=== PATIENT | female | born 1970 | race Caucasian/White ===

== ENCOUNTER 2016-11-28 20:10 | Emergency (ER) | payer BC, MEDICAID ==
--- NOTE | 2016-11-28 20:18 | EDM.PDOC ---
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 Past medical history: As per history of present illness and as reviewed below otherwise noncontributory. Surgical history: As per history of present illness and as reviewed below otherwise noncontributory. Social history: No reported history of drug or alcohol abuse. Family history: As per history of present illness and as reviewed below otherwise noncontributory. Physical exam:alert oriented female, obese. HEENT: Atraumatic, normocehpalic, pupils reactive, negative for conjunctival pallor or scleral icterus, mucous membranes moist, throat clear, neck supple, nontender, trachea midline. Lungs: Clear to auscultation, breath sounds equal bilaterally, chest non tender. Heart: S1S2, regular, negative for clicks, rubs, or JVD. Abdomen: Soft, nondistended, nontender. Negative for masses or hepatossplenmegaly. Negative for costovertebral tenderness. Pelvis: Stable nontender. Genitourinary: Deferred. Rectal: Deferred Extremities: Atraumatic, negative for cords or calf pain. pain with light compression of the calf. Neurovascular unremarkable. Neuro: Awake, alert, oriented. Cranial nerves II through XII unremarkable. Cerebellum unremarkable. Motor and sensory unremarkable throughout. Exam nonfocal. Diagnostics: [doppler negative for DVT] Therapeutics: [toradal] Impression: [rt leg pain] Plan: [follow up with [facility] [address] [place] [id number] ] Definitive disposition and diagnosis as appropriate pending reevaluation and review of above. Occurred When: other (painful X 1 month but worsening for the last week) Method of Injury: unknown Severity: severe Pain/Injury Location: Reports: none Consciousness: Reports: no loss of consciousness Associated Symptoms: Reports: no other symptoms Allergies/ADRs: Allergies No Known Allergies Allergy (Verified 11/28/16 20:12) Home Medications: Ambulatory Orders Aspirin 1 tab PO DAILY 11/28/16 [Confirmed 11/28/16] Calcium Carb & Citrate/Vit D3 [Calcium + D3 ER Tablet] 1 tab PO DAILY 11/28/16 [ Confirmed 11/28/16] Cholecalciferol (Vitamin D3) [Vitamin D3] 1 cap PO DAILY 11/28/16 [Confirmed 09/04] Cyanocobalamin (Vitamin B-12) [Vitamin B12] 1 tab PO DAILY 11/28/16 [Confirmed 11/28/16] DULoxetine [Cymbalta] 1 cap PO DAILY 11/28/16 [Confirmed 11/28/16] FA/Lycopene/Lut/MV,Ca,Iron,Min [Centrum] 1 tab PO DAILY 11/28/16 [Confirmed 09/04] Ferrous Sulfate [Iron] 1 tab PO DAILY 11/28/16 [Confirmed 11/28/16] Gabapentin [Gralise] 1 tab PO TID 11/28/16 [Confirmed 11/28/16] Levothyroxine 1 tab PO DAILY 11/28/16 [Confirmed 11/28/16] Lisinopril 1 tab PO DAILY 11/28/16 [Confirmed 11/28/16] Omeprazole 1 cap PO DAILY 11/28/16 [Confirmed 11/28/16] Review of Systems - Review of Systems Review Of Systems: ROS reveals no pertinent complaints other than HPI. Trauma Exam - Physical Exam Exam: See Below (see dictation) Course - Vital Signs Last Recorded V/S: Last Vital Signs Temp 36.8 C 11/28/16 20:13 Pulse 88 11/28/16 20:13 Resp 16 11/28/16 20:13 BP 186/86 H 11/28/16 20:13 Pulse Ox 99 11/28/16 20:13 - Orders/Labs/Meds Orders: Active Orders 24 hr Category Date Time Status Venous Doppler Lwr Ext Rt [US] Stat Exams 11/28/16 20:19 Ordered Ketorolac [Toradol] Med 11/28/16 21:52 Once 60 mg IM ONETIME ONE Sodium Chloride 0.9% [Saline Flush] Med 11/28/16 20:41 Active 10 ml FLUSH ASDIRECTED PRN Sodium Chloride 0.9% [Saline Flush] Med 11/28/16 20:41 Active 2.5 ml FLUSH ASDIRECTED PRN Saline Lock Insert [OM.PC] Stat Oth 11/28/16 20:41 Ordered Medication Orders Sodium Chloride (Saline Flush) 10 ml FLUSH ASDIRECTED PRN PRN Reason: Keep Vein Open Sodium Chloride (Saline Flush) 2.5 ml FLUSH ASDIRECTED PRN PRN Reason: Keep Vein Open Labs: Laboratory Tests 11/28/16 11/28/16 11/28/16 Range/Units 20:45 20:45 20:45 WBC 6.23 (4.0-11.0) K/uL RBC 5.64 (4.30-5.90) M/uL Hgb 12.8 (12.0-16.0) g/dL Hct 41.8 (36.0-46.0) % MCV 74.1 L (80.0-98.0) fL MCH 22.7 L (27.0-32.0) pg MCHC 30.6 L (31.0-37.0) g/dL RDW Std Deviation 48.1 (28.0-62.0) fl RDW Coeff of Tila 18 H (11.0-15.0) % Plt Count 212 (150-400) K/uL MPV 10.00 (7.40-12.00) fL Neut % (Auto) 56.3 (48.0-80.0) % Lymph % (Auto) 27.0 (16.0-40.0) % Caroline % (Auto) 13.8 (0.0-15.0) % Eos % (Auto) 2.4 (0.0-7.0) % Baso % (Auto) 0.5 (0.0-1.5) % Neut # 3.5 (1.4-5.7) K/uL Lymph # 1.7 (0.6-2.4) K/uL Caroline # 0.9 H (0.0-0.8) K/uL Eos # 0.2 (0.0-0.7) K/uL Baso # 0.0 (0.0-0.1) K/uL Nucleated RBC % 0.0 /100WBC Nucleated RBCs # 0 K/uL INR 0.98 (0.86-1.11) Sodium 140 (136-146) mmol/L Potassium 4.0 (3.5-5.1) mmol/L Chloride 106 (98-110) mmol/L Carbon Dioxide 26 (21-31) mmol/L BUN 15 (6.0-23.0) mg/dL Creatinine 0.8 (0.6-1.5) mg/dL Est Cr Clr Drug Dosing 79.91 mL/min Estimated GFR (MDRD) > 60.0 ml/min Glucose 117 H (60-110) mg/dL Calcium 8.9 (8.8-10.8) mg/dL Total Bilirubin 0.3 (0.1-1.5) mg/dL AST 11 (5-40) IU/L ALT 11 (8-54) IU/L Alkaline Phosphatase 60 (40-150) Total Protein 6.4 (6.0-8.0) g/dL Albumin 3.7 (3.5-5.0) g/dL Globulin 2.7 (2.0-3.5) g/dL Albumin/Globulin Ratio 1.4 (1.3-2.8) Meds: Medications Generic Name Dose Route Start Last Admin Trade Name Freq PRN Reason Stop Dose Admin Sodium Chloride 10 ml 11/28/16 20:41 Saline Flush FLUSH ASDIRECTED PRN Keep Vein Open Sodium Chloride 2.5 ml 11/28/16 20:41 Saline Flush FLUSH ASDIRECTED PRN Keep Vein Open Departure - Departure Time of Disposition: 21:54 Disposition: Home, Self-Care 01 Condition: good Clinical Impression: Leg pain Qualifiers: Laterality: right Qualified Code(s): M79.604 - Pain in right leg Referrals: PCP,None [Primary Care Provider] - Jana Recio, [employer] [Nurse Practitioner] - Forms: ED Department Discharge Additional Instructions: The following information is given to patients seen in the emergency department who are being discharged to home. This information is to outline your options for follow-up care. We provide all patients seen in our emergency department with a follow-up referral. The need for follow-up, as well as the timing and circumstances, are variable depending upon the specifics of your emergency department visit. If you don't have a primary care physician on staff, we will provide you with a referral. We always advise you to contact your personal physician following an emergency department visit to inform them of the circumstance of the visit and for follow-up with them and/or the need for any referrals to a consulting specialist. The emergency department will also refer you to a specialist when appropriate. This referral assures that you have the opportunity for followup care with a specialist. All of these measure are taken in an effort to provide you with optimal care, which includes your followup. Under all circumstances we always encourage you to contact your private physician who remains a resource for coordinating your care. When calling for followup care, please make the office aware that this follow-up is from your recent emergency room visit. If for any reason you are refused follow-up, please contact the [facility] emergency department at and asked to speak to the emergency department charge nurse. - My Orders Last 24 Hours: My Active Orders 11/28/16 20:19 Venous Doppler Lwr Ext Rt [US] Stat 11/28/16 20:41 Sodium Chloride 0.9% [Saline Flush] 10 ml FLUSH ASDIRECTED PRN Sodium Chloride 0.9% [Saline Flush] 2.5 ml FLUSH ASDIRECTED PRN Saline Lock Insert [OM.PC] Stat 11/28/16 21:52 Ketorolac [Toradol] 60 mg IM ONETIME ONE - Assessment/Plan Last 24 Hours: My Active Orders 11/28/16 20:19 Venous Doppler Lwr Ext Rt [US] Stat 11/28/16 20:41 Sodium Chloride 0.9% [Saline Flush] 10 ml FLUSH ASDIRECTED PRN Sodium Chloride 0.9% [Saline Flush] 2.5 ml FLUSH ASDIRECTED PRN Saline Lock Insert [OM.PC] Stat 11/28/16 21:52 Ketorolac [Toradol] 60 mg IM ONETIME ONE
[2016-11-28] MEDS ORDERED: Sodium Chloride 0.9% 2.5 ML Syringe FLUSH PRN (20:41)
[2016-11-28] MEDS ORDERED: Sodium Chloride 0.9% 10 ML Syringe FLUSH PRN (20:41)
[2016-11-28 21:18] LABS: CHLORIDE,CL 106 mmol/L (98-110); SODIUM,NA 140 mmol/L (136-146)
[2016-11-28] MEDS ORDERED: Ketorolac 60 MG/2 ML SDV IM ONE (21:52)
[2016-11-28] MEDS ORDERED: Ketorolac 30 MG/ML SDV IVPUSH ONE (22:00)
[2016-11-28 22:37] VITALS: BP 125/67
--- NOTE | 2016-11-30 10:40 | US ---
EXAM DATE: 11/28/16 PATIENT'S AGE: 46 Patient: GUANAKITO GOYAL Facility: [place], [place] Site . Site : 1970 Study: US Extremity [id number]/12/2017 9:54:54 PM Ordering Physician: Doctor Owen Final Report: INDICATION: Leg pain TECHNIQUE: right lower extremity venous duplex ultrasound was performed using gomez-scale ultrasound with and without compression and augmentation. Color Doppler and spectral Doppler exam of the lower extremity veins were obtained. COMPARISON: None FINDINGS: The right common femoral, deep femoral, superficial femoral, popliteal, posterior tibial, and greater saphenous veins are fully compressible with normal Duplex waveforms and response to mechanical augmentation. No masses or fluid collections are present. No mass or adenopathy is seen. IMPRESSION: 1. No sonographic evidence of deep venous thrombosis seen. Dictated by: Black Armstrong MD @ 11/28/2016 22:03:20 (Electronic Signature) Report Signed by Proxy and Original Signed Document filed in the Medical Record. MTDD
== END 2016-11-28 22:32 | disposition home or self-care (01) ==
LOC: MW.ED 20:10
DX: M79.604 Pain in right leg (principal)
CPT/HCPCS: 80053; 85025; 85610; 93971; 96374; 99284; J1885

== ENCOUNTER → 2016-12-01 | Outpatient (CLI) | payer BC, MEDICAID ==
--- NOTE | 2016-12-01 15:54 | CR ---
EXAMINATION: Lumbar spine HISTORY: Radiculopathy COMPARISON: None TECHNIQUE: AP and lateral views FINDINGS: The lumbar spinal alignment appears normal. The vertebral body heights and disc spaces perry ear well-maintained. No fracture or dislocation. SI joints are symmetric. Bone mineralization is nor mal. IMPRESSION: Grossly unremarkable lumbar spine.
== END | disposition home or self-care (01) ==
LOC: MW.CHIM 12:15
PROVIDERS: ATTEND Internal Medicine
DX: M54.16 Radiculopathy, lumbar region (principal); E03.9 Hypothyroidism, unspecified; G62.9 Polyneuropathy, unspecified
CPT/HCPCS: 36415; 72100; 72100-26; 83036; 84207; 84443

== ENCOUNTER 2019-03-10 01:33 | Emergency (ER) | payer MEDICAID ==
[2019-03-10 01:42] VITALS: BP 181/101
--- NOTE | 2019-03-10 01:44 | EDM.PDOC ---
ED HPI GENERAL MEDICAL PROBLEM - General Chief Complaint: Eye Problems Stated Complaint: LEFT EYE IS SWOLLEN AND PAINFUL Time Seen by Provider: 03/10/19 01:42 - History of Present Illness INITIAL COMMENTS - FREE TEXT/NARRATIVE: HISTORY AND PHYSICAL: History of present illness: Patient 48-year-old female presents with concern of swelling and irritation to her left eyelid times tonight there's been no trauma or other concern there is no involvement of her globe this is strictly related to her left eyelid Review of systems: As per history of present illness and below otherwise all systems reviewed and negative. Past medical history: As per history of present illness and as reviewed below otherwise noncontributory. Surgical history: As per history of present illness and as reviewed below otherwise noncontributory. Social history: No reported history of drug or alcohol abuse. Family history: As per history of present illness and as reviewed below otherwise noncontributory. Physical exam: HEENT: Atraumatic, normocephalic, pupils reactive, negative for conjunctival pallor or scleral icterus, mucous membranes moist, throat clear, neck supple, nontender, trachea midline. Patient is swelling and erythema per left upper lid this is mild to moderate. Lungs: Clear to auscultation, breath sounds equal bilaterally, chest nontender. Heart: S1S2, regular, negative for clicks, rubs, or JVD. Abdomen: Soft, nondistended, nontender. Negative for masses or hepatosplenomegaly. Negative for costovertebral tenderness. Pelvis: Stable nontender. Genitourinary: Deferred. Rectal: Deferred. Extremities: Atraumatic, negative for cords or calf pain. Neurovascular unremarkable. Neuro: Awake, alert, oriented. Cranial nerves II through XII unremarkable. Cerebellum unremarkable. Motor and sensory unremarkable throughout. Exam nonfocal. Diagnostics: None Therapeutics: None Impression: #1 blepharitis Definitive disposition and diagnosis as appropriate pending reevaluation and review of above. left eye Pain Score (Numeric/FACES): 7 - Related Data Allergies Allergy/AdvReac Type Severity Reaction Status Date / Time No Known Allergies Allergy Verified 03/10/19 01:40 Home Meds: Home Meds Aspirin 1 tab PO DAILY 11/28/16 [History] Calcium Carb & Citrate/Vit D3 [Calcium + D3 ER Tablet] 1 tab PO DAILY 11/28/16 [ History] Cholecalciferol (Vitamin D3) [Vitamin D3] 1 cap PO DAILY 11/28/16 [History] Cyanocobalamin (Vitamin B-12) [Vitamin B12] 1 tab PO DAILY 11/28/16 [History] DULoxetine [Cymbalta] 1 cap PO DAILY 11/28/16 [History] FA/Lycopene/Lut/MV,Ca,Iron,Min [Centrum] 1 tab PO DAILY 11/28/16 [History] Ferrous Sulfate [Iron] 1 tab PO DAILY 11/28/16 [History] Gabapentin [Gralise] 1 tab PO TID 11/28/16 [History] Levothyroxine 1 tab PO DAILY 11/28/16 [History] Lisinopril 1 tab PO DAILY 11/28/16 [History] Omeprazole 1 cap PO DAILY 11/28/16 [History] Past Medical History Cardiovascular History: Reports: Blood Clots/VTE/DVT, Hypertension - Infectious Disease History Infectious Disease History: Reports: Chicken Pox - Past Surgical History HEENT Surgical History: Reports: Other (See Below) Musculoskeletal Surgical History: Reports: Other (See Below) Social & Family History - Caffeine Use Caffeine Use: Reports: Soda ED ROS GENERAL - Review of Systems Review Of Systems: ROS reveals no pertinent complaints other than HPI. ED EXAM GENERAL W FULL EYE - Physical Exam Exam: See Below (dictation) Course - Vital Signs Last Recorded V/S: Last Vital Signs Temp 36.1 C 03/10/19 01:35 Pulse 84 03/10/19 01:35 Resp 18 03/10/19 01:35 BP 181/101 H 03/10/19 01:35 Pulse Ox 97 03/10/19 01:35 Departure - Departure Time of Disposition: 01:43 Disposition: Home, Self-Care 01 Condition: Good Clinical Impression: Blepharitis - Discharge Information Referrals: Carlotta Mcfadden MD [Primary Care Provider] - Additional Instructions: The following information is given to patients seen in the emergency department who are being discharged to home. This information is to outline your options for follow-up care. We provide all patients seen in our emergency department with a follow-up referral. The need for follow-up, as well as the timing and circumstances, are variable depending upon the specifics of your emergency department visit. If you don't have a primary care physician on staff, we will provide you with a referral. We always advise you to contact your personal physician following an emergency department visit to inform them of the circumstance of the visit and for follow-up with them and/or the need for any referrals to a consulting specialist. The emergency department will also refer you to a specialist when appropriate. This referral assures that you have the opportunity for followup care with a specialist. All of these measure are taken in an effort to provide you with optimal care, which includes your followup. Under all circumstances we always encourage you to contact your private physician who remains a resource for coordinating your care. When calling for followup care, please make the office aware that this follow-up is from your recent emergency room visit. If for any reason you are refused follow-up, please contact the [facility] emergency department at and asked to speak to the emergency department charge nurse. [facility] [address] [place] [address] Erythromycin ophthalmic ointment as directed warm compresses as discussed follow -up primary medical doctor as needed as discussed ophthalmology clinic for referral as needed as discussed
== END 2019-03-10 01:50 | disposition home or self-care (01) ==
LOC: MW.ED 01:33
DX: H01.004 Unspecified blepharitis left upper eyelid (principal)
CPT/HCPCS: 99282; 99283

== ENCOUNTER 2021-12-19 16:46 | Emergency (ER) | payer MEDICAID ==
[2021-12-19 19:21] VITALS: BP 134/87; PULSE 78
== END 2021-12-19 18:10 | disposition home or self-care (01) ==
LOC: MW.ED 16:46
DX: S80.02XA Contusion of left knee, initial encounter (principal); E78.00 Pure hypercholesterolemia, unspecified; I10 Essential (primary) hypertension; E03.9 Hypothyroidism, unspecified; Z90.49 Acquired absence of other specified parts of digestive tract; Z91.09 Other allergy status, other than to drugs and biological substances; Z79.82 Long term (current) use of aspirin; Z79.899 Other long term (current) drug therapy; W01.0XXA Fall on same level from slipping, tripping and stumbling without subsequent striking against object, initial encounter
CPT/HCPCS: 73562-26-LT; 73562-LT; 73610-26-LT; 73610-LT; 99282; 99283-25

== ENCOUNTER 2022-09-18 18:17 | Emergency (ER) | payer MEDICAID, OTHER ==
[2022-09-18 20:39] VITALS: BP 199/118; PULSE 100
[2022-09-18] MEDS ORDERED: Ondansetron 4 MG/2 ML SDV IVPUSH ONE (20:48)
[2022-09-18] MEDS ORDERED: Morphine 2 MG/ML SYRINGE IVPUSH ONE (20:48)
[2022-09-18] MEDS ORDERED: Sodium Chloride 0.9% 2.5 ML Syringe FLUSH PRN (20:48)
[2022-09-18] MEDS ORDERED: Sodium Chloride 0.9% 10 ML Syringe FLUSH PRN (20:48)
[2022-09-18 21:41] LABS: CARBON DIOXIDE,CO2 28.5 mmol/L (21.0-32.0); POTASSIUM,K 4.7 mmol/L (3.5-5.1)
[2022-09-18] MEDS ORDERED: Rivaroxaban 15 MG Tab PO STA (22:43)
[2022-09-18] MEDS ORDERED: traMADol 50 MG Tab PO ONE (22:52)
[2022-09-19] MEDS ORDERED: Rivaroxaban 15 MG Tab PO SCH (09:00)
== END 2022-09-18 23:50 | disposition home or self-care (01) ==
LOC: MW.ED 18:17
DX: I82.811 Embolism and thrombosis of superficial veins of right lower extremity (principal); E78.00 Pure hypercholesterolemia, unspecified; I10 Essential (primary) hypertension; Z79.82 Long term (current) use of aspirin; Z79.899 Other long term (current) drug therapy; Z91.048 Other nonmedicinal substance allergy status; Z90.49 Acquired absence of other specified parts of digestive tract; Z90.710 Acquired absence of both cervix and uterus
CPT/HCPCS: 36415; 80053; 83735; 85025; 93971; 96374; 96375; 99284; A9270; J2270; J2405; J3490

== ENCOUNTER 2023-08-13 12:50 | Emergency (ER) | payer MEDICAID ==
[2023-08-13] MEDS ORDERED: Acetaminophen 500 MG Tab PO ONE (13:55)
[2023-08-13] MEDS ORDERED: Ibuprofen 600 MG Tab PO ONE (13:55)
[2023-08-13 14:28] LABS: CORONAVIRUS COVID-19 NAA POSITIVE (NEGATIVE); INFLUENZA A NAA NEGATIVE (NEGATIVE); INFLUENZA B NAA NEGATIVE (NEGATIVE)
[2023-08-13 15:02] VITALS: BP 107/85; PULSE 91
== END 2023-08-13 15:01 | disposition home or self-care (01) ==
LOC: MW.ED 12:50
DX: U07.1 COVID-19 (principal); I10 Essential (primary) hypertension; E78.00 Pure hypercholesterolemia, unspecified; E03.9 Hypothyroidism, unspecified; Z90.49 Acquired absence of other specified parts of digestive tract; Z90.710 Acquired absence of both cervix and uterus; Z79.899 Other long term (current) drug therapy; Z79.82 Long term (current) use of aspirin; Z88.8 Allergy status to other drugs, medicaments and biological substances
CPT/HCPCS: 0240U; 71045; 99285; A9270; 99283